=== PATIENT | male | born 1965 | race Caucasian/White ===

== ENCOUNTER 2023-01-02 23:13 | Emergency (ER) | payer OTHER ==
[~2023-01-02] VITALS: Ht 182.9 cm; Wt 79.0 kg
[2023-01-02 23:17] VITALS: O2SAT 97
[2023-01-02 23:39] LABS: BASOPHILS % 0.2 % (0.0-2.0); EOSINOPHILS % 0.6 % (0.0-5.0); HEMATOCRIT. 36.4 % (42.0-52.0); LYMPHOCYTES % 15.6 % (20.0-50.0); MEAN CORPUSCULAR HGB CONC 32.8 g/dL (31.0-37.0); MEAN CORPUSCULAR VOLUME 94.5 fL (80.0-94.0); MEAN PLATELET VOLUME 7.4 fl (7.4-10.4); MONOCYTES % 8.6 % (2.0-8.0); PLATELET 162 x1000/uL (130-400); RED BLOOD CELL COUNT 3.85 mill/uL (4.7-6.1); RED CELL DISTRIBUTION WIDTH 13.7 % (11.6-14.6); WHITE BLOOD COUNT 5.6 x1000/uL (4.5-11.0)
[2023-01-02 23:47] LABS: CHLORIDE 108 mEq/L (98-107); INDEX HEMOLYSI 1 (1-3); INDEX ICTERIC 1 (1-4); INDEX LIPEMIC 1 (1-3); POTASSIUM 3.8 mEq/L (3.5-5.1); SODIUM 135 mEq/L (136-145)
[2023-01-02 23:57] LABS: ACETAMINOPHEN <2 ug/mL ug/mL (10-30); ALANINE AMINOTRANSFERASE 47 IU/L (13-61); ALBUMIN 3.8 g/dL (3.4-5.0); ASPARTATE AMINOTRANSFERASE 36 IU/L (15-37); BILIRUBIN TOTAL 0.5 mg/dL (0.1-1.0); CALCIUM 8.5 mg/dL (8.5-10.1); CARBON DIOXIDE 22 mEq/L (21-32); CREATINE KINASE 105 IU/L (39-308); CREATININE 0.6 mg/dL (0.6-1.3); ETHANOL BLOOD < 10 mg/dL (-10); GLUCOSE 192 mg/dL (70-105); PROTEIN TOTAL 8.3 g/dL (6.0-8.3); UREA NITROGEN BLOOD 17 mg/dL (7-21)
[2023-01-03 00:52] LABS: CLARITY URINE CLEAR (CLEAR); COLOR URINE YELLOW (YELLOW); GLUCOSE URINE NEGATIVE (NEGATIVE); KETONES URINE NEGATIVE (NEGATIVE); LEUKOCYTE ESTERASE URINE NEGATIVE (NEGATIVE); NITRITE URINE NEGATIVE (NEGATIVE); OCCULT BLOOD URINE NEGATIVE (NEGATIVE); PROTEIN URINE TRACE (NEGATIVE); SPECIFIC GRAVITY URINE 1.016 (1.005-1.030); UROBILINOGEN URINE 0.2 E.U./dL (0.2-1.0)
[2023-01-03 00:55] LABS: BACTERIA URINE NONE SEEN; WBC URINE 0-2 /hpf (0-2); YEAST URINE NONE SEEN
[2023-01-03] MEDS ORDERED: DEXTROSE 50% WATER 50ML SYRINGE IV PRN (01:00)
[2023-01-03 01:13] LABS: *AMPHETAMINES SCREEN URINE PRESUMTIVE POSITIVE (NEGATIVE); *BARBITURATES SCREEN URINE PRESUMTIVE POSITIVE (NEGATIVE); *BENZODIAZEPINES SCREEN URINE NEGATIVE (NEGATIVE); *COCAINE SCREEN URINE NEGATIVE (NEGATIVE); CANNABINOID URINE SCREEN PRESUMTIVE POSITIVE (NEGATIVE); ECSTASY MDMA SCREEN URINE CONF.TEST INDICATED (NEGATIVE); METHADONE URINE SCREEN NEGATIVE (NEGATIVE); OPIATES URINE SCREEN NEGATIVE (NEGATIVE); PHENCYCLIDINE URINE SCREEN NEGATIVE (NEGATIVE)
[2023-01-03] MEDS: QUETIAPINE FUMARATE 25MG TABLET PO SCH ×2 (01:15→09:23)
[2023-01-03 03:35] LABS: RBC URINE 0-2 /hpf (0-2); SQUAMOUS EPITHELIAL CELL URINE FEW /lpf (RARE/1+)
[2023-01-03] MEDS ORDERED: INSULIN LISPRO 100 UNITS/ML SUBCUT SCH (08:20)
[2023-01-03] MEDS ORDERED: BLOOD SUGAR DIAGNOSTIC STRIP TEST SCH (09:00)
[2023-01-03] MEDS ORDERED: QUETIAPINE FUMARATE 50MG TABLET PO SCH (09:45)
[2023-01-03] MEDS: TRAZODONE HCL 50MG TABLET PO SCH (21:32)
[2023-01-03] MEDS: QUETIAPINE FUMARATE 50MG TABLET PO SCH (21:32)
[2023-01-04] MEDS: QUETIAPINE FUMARATE 50MG TABLET PO SCH ×2 (09:00→21:00)
[2023-01-04] MEDS ORDERED: ACETAMINOPHEN 325MG TABLET PO ONE (14:15)
[2023-01-04] MEDS: TRAZODONE HCL 50MG TABLET PO SCH (21:00)
[2023-01-04] MEDS ORDERED: BACITRACIN ZINC OINT UDPKT TOP ONE (23:45)
[2023-01-04] MEDS ORDERED: IBUPROFEN 600MG TABLET PO ONE (23:45)
[2023-01-05] MEDS: QUETIAPINE FUMARATE 50MG TABLET PO SCH (09:00)
[2023-01-05] MEDS ORDERED: DIVALPROEX SODIUM 500MG DR TABLET PO SCH (12:00)
[2023-01-05 16:00] VITALS: BP 132/70; PULSE 81; RESP 16; TEMP 98
[2023-01-05] MEDS ORDERED: TRAZODONE HCL 50MG TABLET PO SCH (21:00)
[2023-01-05] MEDS ORDERED: QUETIAPINE FUMARATE 50MG TABLET PO SCH (21:00)
== END 2023-01-05 18:05 ==
LOC: EDBD 23:13 → ER 23:13
DX: R45.851 Suicidal ideations (principal); E11.9 Type 2 diabetes mellitus without complications; F20.9 Schizophrenia, unspecified; Z20.822 Contact with and (suspected) exposure to COVID-19
CPT/HCPCS: 80053; 80307; 80329; 80320; 82550; 82962; 83036; 85025; 36415; 93005; 96372; 99285; C9803; Z7610 ×3; J1815; G0480